=== PATIENT | male | born 1985 | race Two or more races ===

== ENCOUNTER 2018-11-26 18:29 | Emergency (ER) | payer OTHER ==
[~2018-11-26] VITALS: Ht 160 cm; Wt 72.6 kg
--- NOTE | 2018-11-26 18:45 | NUR ---
ED Nurse Note: pt came in from home to ED complaining of right leg pain due to recent colt on the right thigh. pt temp is 100.5. pt took ibuprofen 4 hours ago
--- NOTE | 2018-11-26 19:04 | Emergency Room Report ---
History of Present Illness General Chief Complaint: General Complaint Source: Patient Present Illness HPI Patient returns to an emergency room after receiving colt 3 days ago at another hospital. He was climbing a fence and stabbed himself in the leg on the top of the fence. This was irrigated and stapled. He had increased pain and fever today. There is drainage of yellow and bloody material without pus. The pain is rated 8/10, aching and some pressure. There is some redness around the cut. Pain does not radiate. He denies fevers or chills. There is no nausea, vomiting, diarrhea, sore throat, cough, other rashes. There is no hip pain. No antibiotics were prescribed. He states his tetanus is up-to-date. There is slight numbness distal to the horizontal part of the cut. He is taken Motrin with some relief in the pain. Denies diabetes or other medical problems. Allergies: Coded Allergies: No Known Allergies (Unverified , 10/28/14) Patient History Past Medical History: see triage record Social History: Denies: smoking, alcohol use, drug use Social History Narrative Working Reviewed Nursing Documentation: PMH: Agreed; PSxH: Agreed Nursing Documentation-PMH Past Medical History: No Stated History Review of Systems All Other Systems: negative except mentioned in HPI Physical Exam Vital Signs Date Time Temp Pulse Resp B/P (MAP) Pulse Ox O2 Delivery O2 Flow Rate FiO2 11/26/18 18:38 100.6 107 20 125/76 95 Room Air Sp02 EP Interpretation: reviewed, normal General Appearance: well appearing, no apparent distress, non-toxic Head: normocephalic, atraumatic Eyes: bilateral eye normal inspection ENT: hearing grossly normal, normal voice, moist mucus membranes Neck: full range of motion, supple Respiratory: no respiratory distress, speaking full sentences Gastrointestinal: normal inspection Musculoskeletal: back normal, digits/nails normal, gait/station normal, normal range of motion, no calf tenderness Neurologic: alert, normal gait, sensory deficit - Distal to the cut, grossly normal Psychiatric: mood/affect normal Skin: warm/dry, other - L-shaped laceration with colt and some serosanguineous drainage and surrounding erythema. No fluctuance. Procedures Additional Procedure Procedure Narrative extraneous colt removed Medical Decision Making Diagnostic Impression: Primary Impression: Wound infection ER Course Patient with fever and drainage from leg wound. This is a wound infection. Not toxic. Antibiotics are indicated. Also analgesia. Extraneous colt removed. Culture sent. Antibiotics begun. At this point IV antibiotics are not indicated. However the wound needs to be closely followed. Patient stable for outpatient observation and treatment. Will have him return in 2 days for recheck. Advised of need to elevate foot. Other wound care instructions were reviewed. Last Vital Signs Date Time Temp Pulse Resp B/P (MAP) Pulse Ox O2 Delivery O2 Flow Rate FiO2 11/26/18 20:53 99.0 82 20 125/76 95 Room Air Status: improved Disposition: HOME, SELF-CARE Condition: Improved Scripts Bacitracin (Bacitracin) 28.4 Gm Oint...g. 1 APPLIC TOPIC THREE TIMES A DAY, #20 GM Prov: Eze Barber MD 11/26/18 Ibuprofen* (MOTRIN*) 600 Mg Tablet 600 MG ORAL Q6H PRN for For Pain, #20 TAB Prov: zEe Barber MD 11/26/18 Cephalexin* (KEFLEX*) 500 Mg Capsule 500 MG ORAL EVERY 6 HOURS, #28 CAP Prov: Eze Barber MD 11/26/18 Trimethoprim/Sulfamethoxazole 160/800* (BACTRIM DS TABLET*) 1 Each Tablet 1 TAB ORAL Q12H, #14 TAB 0 Refills Prov: Eze Barber MD 11/26/18 Eze Barber MD Nov 26, 2018 19:04
--- NOTE | 2018-11-26 19:10 | NUR ---
ED Nurse Note: Received report from TRACEY Anderson. Patient AO4. NAD. VSS.
[2018-11-26] MEDS ORDERED: Cephalexin 500mg cap ORAL ONE (19:15)
[2018-11-26] MEDS ORDERED: Bactrim-DS 1 tab ORAL ONE (19:15)
[2018-11-26] MEDS ORDERED: Bacitracin Oint UD TOPIC ONE (19:15)
[2018-11-26 19:51] VITALS: BP 125/76
[2018-11-26] MEDS ORDERED: BACITRACIN15 GM TOPIC (20:49)
[2018-11-26] MEDS ORDERED: IBUPROFEN600 MG ORAL (20:49)
[2018-11-26] MEDS ORDERED: BACTRIM DS TAB1 EAC1 ORAL (20:49)
[2018-11-26] MEDS ORDERED: CEPHALEXIN500 MG ORAL (20:49)
[2018-11-26 20:53] VITALS: BP 125/76
--- NOTE | 2018-11-26 20:53 | NUR ---
ED Nurse Note; Patient cleared for discharge per ERMD. AO4. NAD. VSS. Patient given prescriptions and discharge instructions; verbalized understanding. ID band removed. Patient ambulated out with all personal belongings with steady gait.
== END 2018-11-26 20:53 | disposition home or self-care (01) ==
LOC: EMR 19:40
DX: S81.811D Laceration without foreign body, right lower leg, subsequent encounter (principal); L08.9 Local infection of the skin and subcutaneous tissue, unspecified; W45.8XXD Other foreign body or object entering through skin, subsequent encounter; Z48.02 Encounter for removal of sutures
CPT/HCPCS: 87070; 87205; 99283